=== PATIENT | female | born 1970 | race Hispanic/Latino ===

== ENCOUNTER 2020-09-27 05:40 | Day surgery (SDC) | payer OTHER ==
[~2020-09-27] VITALS: Ht 162.6 cm; Wt 81.0 kg
--- NOTE | 2020-09-27 08:07 | NUR ---
09/27/20 0807 Laly Paz 0801 PT ARRIVED TO PACU ON RA, PT WAKES AND TALKING TO RN. PT DENIES PAIN AND NAUSEA. VSS. 0806 MD AT BEDSIDE TALKING TO PT, AND PLAN OF CARE DISCUSSED.
--- NOTE | 2020-09-27 08:58 | NUR ---
PT TAKEN TO OR, CONNECTED WITH FAMILY. WILL REMAIN IN RM UNTIL DC. GAVE BLESSING AND ENCOURAGEMENT
--- NOTE | 2020-10-02 10:16 | OR ---
[facility] [address] [place], [place] [address] Signed DATE OF OPERATION: 09/27/2020 SURGEON: Marilynn Walter MD PREOPERATIVE DIAGNOSIS: Abnormal uterine bleeding. Endometrial polyps. POSTOPERATIVE DIAGNOSIS: Abnormal uterine bleeding. Endometrial polyps. PROCEDURE: Hysteroscopy resection of polyps. ANESTHESIA: MAC. ESTIMATED BLOOD LOSS: 25 mL. DRAINS: None. INDICATIONS AND FINDINGS: The patient is a 50-year-old female, 4, para 4, who has been having abnormal bleeding. Evaluation revealed probable endometrial polyps on ultrasound. At the time of surgery, exam under anesthesia revealed normal size uterus. The cavity sounded to 8 cm. There was a polyp of the left posterior fundus as well as the mid superior fundus in the midline. DESCRIPTION OF PROCEDURE: The patient was prepped and draped in the dorsal lithotomy position. A weighted speculum was placed. The anterior lip of the cervix was visualized and grasped with a single-tooth tenaculum. The cavity was then sounded to 8 cm. The endocervical canal was then dilated with some difficulty to an #8 dilator. At this point, MyoSure device could be introduced. The cavity was evaluated and the polyps were identified. The MyoSure Lite was then introduced and the left posterior polyp was easily removed. The polyp at the fundal midline was more difficult given its location, but the great majority of this polyp was also excised. This particular area had a little bit more firmness compared to the other polyp. Following this, remaining cavity appeared normal. The procedure was then terminated. The instruments removed Electronically Signed By: MARILYNN WALTER MD 10/02/20 1016 PATIENT NAME: RADHA HANCOCK OPERATIVE REPORT DATE OF : 72 REPORT #: [id number] PHYSICIAN: MARILYNN WALTER MD PCP: OTHER PCP REPORT IS CONFIDENTIAL AND NOT TO BE RELEASED WITHOUT AUTHORIZATION [facility] [address] [place], [place] [address] Signed from the uterus itself. The tenaculum was removed. There was some bleeding from the tenaculum sites, which did not respond to pressure. [id number] sutures were placed on the anterior cervix and at 3 o'clock and 9 o'clock using 0 chromic. Following this, there was very minimal bleeding noted. The procedure was terminated with removal of vaginal instruments. All sponge and needle counts were correct. She was taken to the recovery room in good condition. MD ILA Espinal/MODL /[id number] Copies: ~ Electronically Signed By: MARILYNN WALTER MD 10/02/20 1016 PATIENT NAME: RADHA HANCOCK OPERATIVE REPORT DATE OF : 72 REPORT #: [id number] PHYSICIAN: MARILYNN WALTER MD PCP: OTHER PCP REPORT IS CONFIDENTIAL AND NOT TO BE RELEASED WITHOUT AUTHORIZATION
== END 2020-09-27 08:40 | disposition home or self-care (01) ==
LOC: DS 05:40
PROVIDERS: ATTEND Obstetrics & Gynecology
PROC: 0UB98ZZ Excision of Uterus, Via Natural or Artificial Opening Endoscopic (ICD-10-PCS; principal; 2020-09-27 06:45)
DX: N84.0 Polyp of corpus uteri (principal); N93.9 Abnormal uterine and vaginal bleeding, unspecified; N92.6 Irregular menstruation, unspecified; K21.9 Gastro-esophageal reflux disease without esophagitis
CPT/HCPCS: 00952; J1100; J1885; J2001; J2250; J2405; J2704; J2765; J7121